=== PATIENT | female | born 1965 | race Caucasian/White ===

== ENCOUNTER 2020-05-20 09:11 | Emergency (ER) | payer OTHER, BC, SELFPAY ==
[2020-05-20 09:12] VITALS: BP 161/98; PULSE 100; RESP 18; TEMP 36.6; O2SAT 99; BMI 25.7
--- NOTE | 2020-05-20 10:11 | ED.DCSUM_ITS ---
- ER Visit Summary Date of Service: 05/20/20 Chief Complaint: Mild right lateral knee pain History of Present Illness: The patient is a 55 F Pap smear history of hypertension. 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 She has had no recent travel or surgery. Said she had a tattoo touched up on her right foot. While they were doing that she was holding her right knee awkwardly. Since Saturday she has had some mild discomfort to her right lateral knee. She denies any falls or injuries. No significant swelling. No fever or redness. She is never had a blood clot. She denies any history of DVT or PE. She has had no recent risk factors. Physical Examination: Middle-aged female no acute distress vital signs stable afebrile. Pulse ox 9 9% room air no signs hypoxia. H EENT exam unremarkable. Lungs clear to auscultation. Heart regular rhythm no murmur. Abdomen soft nontender. Extremities moves all 4. Neurovascular intact. She has full flexion-extension of both hips knees ankles and feet dorsi plantarflexion intact. Specifically the right knee is nonswollen. Full flexion-extension. ACL, PCL, MCL LCL are intact. She has mild tenderness to the lateral right knee and primarily on the proximal fibula. There is no deformity. No swelling. No redness. No septic joint. Calf is nontender without edema or cords. Right foot is neurovascular intact with normal DP and PT pulse. Normal dorsi plantarflexion sensation. Neurologic exam normal. Test Results: Discussed with patient she did not want any x-rays at this time. I agreed with her clinically not necessary there is been no trauma. Emergency Department Course and Treatment: Appears that she has a strain of her right knee from holding it awkwardly while they were doing the tattoo on her right foot. Treatment Plan: Ice and anti-inflammatories rest. Should progressively improve if not follow-up. Disposition: Discharge Impression: Right lateral knee strain This note was generated with [employer] dictation software. It may contain incorrect words, spelling, and punctuation that were not noted in review of the chart prior to signing ED Disposition - Plan for ED Patient: Referrals: Jaki Ashton MD [Primary Care Provider] -
--- NOTE | 2020-05-20 10:13 | ED.DEP ---
ED Disposition - Plan for ED Patient: Disposition: Home or Assisted Living Instructions: ED Sprain Knee Referrals: Jaki Ashton MD [Primary Care Provider] - 1 Week if not improving Additional Instructions: You have a strain of your right lateral knee or tendonitis. Both treated with ice and anti-inflammatories and rest. This should progressively improve. If not follow-up.
== END 2020-05-20 10:21 | disposition home or self-care (01) ==
PROVIDERS: Emergency Provider Emergency Medicine; PCP Internal Medicine
DX: S86.811A Strain of other muscle(s) and tendon(s) at lower leg level, right leg, initial encounter (principal); I10 Essential (primary) hypertension; Z79.899 Other long term (current) drug therapy; X50.1XXA Overexertion from prolonged static or awkward postures, initial encounter; Y93.89 Activity, other specified; Y92.89 Other specified places as the place of occurrence of the external cause; Y99.8 Other external cause status
CPT/HCPCS: 99282